=== PATIENT | male | born 1950 | race Caucasian/White ===

== ENCOUNTER → 2019-02-17 | Outpatient (CLI) | payer OTHER ==
[~2019-02-17] MED LIST: ADULT LOW DOSE81 MG PO; B12INJ PO; FISHOIL; GLUCOSAMINE &1 EAC1 PO; LIPITOR20 MG PO; PRILOSEC 20 MG20 MG PO
== END ==
LOC: CAT 14:50
DX: Z13.6 Encounter for screening for cardiovascular disorders (principal); E78.00 Pure hypercholesterolemia, unspecified; I25.10 Atherosclerotic heart disease of native coronary artery without angina pectoris